=== PATIENT | male | born 1990 | race American Indian/Alaskan Native ===

== ENCOUNTER 2020-06-01 17:04 | Emergency (ER) | payer SELFPAY ==
[2020-06-01 17:31] VITALS: BP 157/68
[2020-06-01] MEDS ORDERED: IBUPROFEN 600 MG TAB PO ONE ×2 (18:50→18:54)
--- NOTE | 2020-06-01 19:33 | XRay Report ---
LEFT HAND 4 VIEW(S) INDICATION / CLINICAL INFORMATION: Pain COMPARISON: None available. FINDINGS: BONES / JOINT(S): No acute fracture or subluxation. No significant arthritis. SOFT TISSUES: No significant abnormality. ADDITIONAL FINDINGS: None. IMPRESSION: No acute osseous findings of the left hand. Signer Name: Robel Curtis MD Signed: 06/01/2020 7:28 PM Workstation Name: [id number]
--- NOTE | 2020-06-01 19:47 | Emergency Department Report ---
ED Upper Extremity Inj HPI - General Chief Complaint: Extremity Injury, Upper Stated Complaint: LFT HAND INJURY/PAIN Time Seen by Provider: 06/01/20 19:42 Source: patient Mode of arrival: Ambulatory Limitations: No Limitations - History of Present Illness Initial Comments: Patient is a 29-year-old male who presents emergency room after smashing his finger in a car door around 10:30 AM this morning. He states that he smashed his middle finger and ring finger on the left hand. He has associated pain and pain with movement. He is right-hand dominant. He denies any numbness or weakness. He denies ever injuring in the past. past medical history of asthma. No allergies to medications. - Related Data Previous Rx's Medication Instructions Recorded Last Taken Type Naproxen [EC-Naprosyn] 500 mg PO BID PRN #14 tablet. 06/01/20 Unknown Rx Allergies Allergy/AdvReac Type Severity Reaction Status Date / Time Penicillins Allergy Rash Verified 06/01/20 17:27 ED Review of Systems ROS: Stated complaint: LFT HAND INJURY/PAIN Other details as noted in HPI Comment: All other systems reviewed and negative ED Past Medical Hx - Past Medical History Previous Medical History?: Yes Hx Asthma: Yes - Surgical History Past Surgical History?: No - Medications Home Medications: Home Medications Medication Instructions Recorded Confirmed Last Taken Type Naproxen [EC-Naprosyn] 500 mg PO BID PRN #14 tablet. 06/01/20 Unknown Rx ED Physical Exam - General Limitations: No Limitations General appearance: alert, in no apparent distress - Head Head exam: Present: atraumatic, normocephalic - Eye Eye exam: Present: normal appearance - ENT ENT exam: Present: mucous membranes moist - Respiratory Respiratory exam: Absent: respiratory distress, accessory muscle use - Extremities Exam Extremities exam: Present: other (ttp to the distal left middle finger and left ring finger, there is a subungal hematoma present to the left middle finger nail, there is ecchymosis to the left middle finger nail bed, FROM of the left wrist, hand, and digits, no wrist ttp, no snuffbox ttp, no deformity, neurovascularly intact) - Neurological Exam Neurological exam: Present: alert, oriented X3 - Psychiatric Psychiatric exam: Present: normal affect, normal mood - Skin Skin exam: Present: warm, dry ED Course Vital Signs 06/01/20 17:30 Temperature 98 F Pulse Rate 56 L Respiratory 16 Rate Blood Pressure 157/68 [Right] O2 Sat by Pulse 98 Oximetry ED Medical Decision Making - Radiology Data Radiology results: report reviewed Ordering Physician: ALTA ARIAS Date of Service: 06/01/20 Procedure(s): XR hand 3+V LT Accession Number(s): [id number] cc: ALTA ARIAS Fluoro Time In Minutes: LEFT HAND 4 VIEW(S) INDICATION / CLINICAL INFORMATION: Pain COMPARISON: None available. FINDINGS: BONES / JOINT(S): No acute fracture or subluxation. No significant arthritis. SOFT TISSUES: No significant abnormality. ADDITIONAL FINDINGS: None. IMPRESSION: No acute osseous findings of the left hand. Signer Name: Penny Curtis MD Signed: 06/01/2020 7:28 PM Workstation Name: [id number] Transcribed By: NIYA Dictated By: PENNY CURTIS MD Electronically Authenticated By: PENNY CURTIS MD Signed Date/Time: 06/01/201927 DD/ 26 TD/TT: - Medical Decision Making Patient is a 29-year-old male who presents emergency room after smashing his finger in a car door around 10:30 AM this morning. He states that he smashed his middle finger and ring finger on the left hand. He has associated pain and pain with movement. He is right-hand dominant. He denies any numbness or weakness. He denies ever injuring in the past. past medical history of asthma. No allergies to medications. vss. on exam: ttp to the distal left middle finger and left ring finger, there is a subungal hematoma present to the left middle finger nail, there is ecchymosis to the left middle finger nail bed, FROM of the left wrist, hand, and digits, no wrist ttp, no snuffbox ttp, no deformity, neurovascularly intact. XR left hand: No acute osseous findings of the left hand. Examination appears consistent with contusion and subungual hematoma. Discussed all findings with patient and answered questions. Patient given prescription for naproxen. Advised patient Please take medication as prescribed as needed. May ice for 15 minutes at a time, rest, elevate the arm. Follow-up with orthopedic doctor. Return to emergency room for any new or worsening symptoms. - Differential Diagnosis Strain, sprain, fracture, dislocation, contusion, subungual hematoma Critical care attestation.: If time is entered above; I have spent that time in minutes in the direct care of this critically ill patient, excluding procedure time. ED Disposition Clinical Impression: Subungual hematoma, Pain of left middle finger, Finger pain, left Disposition: TO HOME OR SELFCARE Is pt being admited?: No Does the pt Need Aspirin: No Condition: Stable Instructions: Subungual Hematoma, Contusion Additional Instructions: Please take medication as prescribed as needed. May ice for 15 minutes at a time, rest, elevate the arm. Follow-up with orthopedic doctor. Return to emergency room for any new or worsening symptoms. Prescriptions: Naproxen [EC-Naprosyn] 500 mg PO BID PRN #14 tablet.dr DANIELS Reason: pain Referrals: MARTA DUCKWORTH MD [Staff Physician] - 2-3 Days [facility] [Provider Group] - 2-3 Days Forms: Work/School Release Form(ED) Time of Disposition: 19:46 Print Language: [place]
== END 2020-06-01 20:19 | disposition home or self-care (01) ==
LOC: ED 17:04
DX: S60.032A Contusion of left middle finger without damage to nail, initial encounter (principal); M79.645 Pain in left finger(s); J45.909 Unspecified asthma, uncomplicated; Z79.899 Other long term (current) drug therapy; Z88.0 Allergy status to penicillin; X58.XXXA Exposure to other specified factors, initial encounter; Y93.89 Activity, other specified; Y92.89 Other specified places as the place of occurrence of the external cause; Y99.8 Other external cause status